=== PATIENT | male | born 1940 | race Caucasian/White ===

== ENCOUNTER 2018-11-29 08:16 | Day surgery (SDC) ==
[2018-11-29] MEDS ORDERED: BRIMONIDINE TARTRATE 0.2% OPTH SOL OP PRN (08:43)
[2018-11-29] MEDS ORDERED: ZOFRAN 4 MG/2 ML IVP ONE (08:43)
[2018-11-29] MEDS ORDERED: LIDOCAINE 1% 20 ML MDV ID STA (08:43)
[2018-11-29] MEDS: TETRACAINE 0.5% UNIT-DOSE OP PRN ×2 (09:05→09:40)
[2018-11-29] MEDS: BETADINE OPTH PREP OP PRN ×2 (09:05→09:40)
[2018-11-29] MEDS: CYCLOGYL 2% OPTH OP PRN ×3 (09:05→09:15)
[2018-11-29] MEDS: AK-DILATE 10% OPTH SOL OP PRN ×2 (09:20→09:38)
[2018-11-29] MEDS: BSS WITH EPINEPHRINE OP ONE ×2 (09:46→09:54)
[2018-11-29] MEDS: DEX-MOXI-KETOR OPTH INJ 1/0.5/0.4 MG/ML IO ONE ×2 (09:47→09:54)
[2018-11-29] MEDS: LIDOCAINE 1%/PHENYLEPHRINE 1.5% BSS (SURGERY) INTRAOCULA ONE ×2 (09:47→09:54)
[2018-11-29] MEDS ORDERED: SUBLIMAZE ONE (09:50)
[2018-11-29] MEDS ORDERED: ZOFRAN 4 MG/2 ML ONE (09:50)
[2018-11-29] MEDS ORDERED: VERSED ONE (09:50)
[2018-11-29 13:56] VITALS: TEMP 97.4
[2018-11-29 14:23] VITALS: BP 123/66
== END 2018-11-29 10:45 | disposition home or self-care (01) ==
LOC: SURG 08:16
PROVIDERS: ATTEND Ophthalmology
DX: H25.811 Combined forms of age-related cataract, right eye (principal)